=== PATIENT | male | born 1980 | race African-American/Black ===

== ENCOUNTER 2022-03-27 13:52 | Emergency (ER) | payer OTHER, BC ==
[2022-03-27] MEDS ORDERED: CYCLOBENZAPRINE10 MG PO (15:40)
[2022-03-27] MEDS ORDERED: IBUPROFEN800 MG PO (15:40)
== END 2022-03-27 18:26 | disposition home or self-care (01) ==
LOC: ER1 13:52
DX: S82.002A Unspecified fracture of left patella, initial encounter for closed fracture (principal); M54.50 Low back pain, unspecified; J45.909 Unspecified asthma, uncomplicated; I10 Essential (primary) hypertension; F17.210 Nicotine dependence, cigarettes, uncomplicated; V49.9XXA Car occupant (driver) (passenger) injured in unspecified traffic accident, initial encounter
CPT/HCPCS: 72131; 73564; 99284